=== PATIENT | male | born 1980 ===

== ENCOUNTER 2023-04-14 08:57 | Day surgery (SDC) | payer BC ==
[~2023-04-14] VITALS: Ht 193 cm; Wt 101.6 kg
[2023-04-14] MEDS ORDERED: NEBI5 (09:11)
== END 2023-04-14 11:28 | disposition home or self-care (01) ==
LOC: ORSCSDS 08:57
PROVIDERS: Surgery
PROC: 0DBP8ZX Excision of Rectum, Via Natural or Artificial Opening Endoscopic, Diagnostic (ICD-10-PCS; principal; 2023-04-14 10:15)
DX: K62.5 Hemorrhage of anus and rectum (principal); K62.89 Other specified diseases of anus and rectum; K62.1 Rectal polyp; K64.8 Other hemorrhoids; I10 Essential (primary) hypertension; E55.9 Vitamin D deficiency, unspecified; F41.9 Anxiety disorder, unspecified; Z79.899 Other long term (current) drug therapy
CPT/HCPCS: 88305; J2250; J2704; J7120